=== PATIENT | female | born 1995 | race Caucasian/White ===

== ENCOUNTER 2017-09-30 16:08 | Emergency (ER) | payer SELFPAY ==
[~2017-09-30] VITALS: Ht 165.1 cm; Wt 70.8 kg
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
--- NOTE | 2017-09-30 16:10 | NUR ---
IV ACCESS STARTED. BLOOD DRAWN FOR LABS. MEDICATED ORDERED.
[2017-09-30] MEDS ORDERED: IV NS 0.9% 1,000 ML BAG IV ONE (16:30)
[2017-09-30] MEDS ORDERED: ONDANSETRON HCL/PF 4 MG/2 ML VIAL IVP ONE (16:30)
[2017-09-30] MEDS ORDERED: MORPHINE SULFATE INJ 2 MG/ML DISP.SYRIN IV ONE ×2 (16:30→18:30)
[2017-09-30] MEDS ORDERED: ONDANSETRON HCL/PF 4 MG/2 ML VIAL ONE (16:31)
[2017-09-30] MEDS ORDERED: MORPHINE SULFATE INJ 4 MG/ML DISP.SYRIN ONE ×2 (16:31→18:16)
[2017-09-30 16:33] LABS: BASOPHILS # (AUTO) 0.1 /CMM (0.0-0.2); BASOPHILS % (AUTO) 1.2 % (0.0-2.0); EOSINOPHILS % (AUTO) 0.7 % (0.0-6.0); HEMATOCRIT 40 % (33-45); HEMOGLOBIN 13.5 g/dL (11.5-14.8); LYMPHOCYTES # (AUTO) 1.8 /CMM (0.8-4.8); LYMPHOCYTES % (AUTO) 22.9 % (20.0-44.0); MEAN CORPUSCULAR HEMOGLOBIN 31 PG (26.0-33.0); MEAN CORPUSCULAR HGB CONC 34 g/dl (31.0-36.0); MEAN CORPUSCULAR VOLUME 91 fL (82-100); MONOCYTES # (AUTO) 0.6 /CMM (0.1-1.30); MONOCYTES % (AUTO) 8.3 % (2.0-12.0); NEUTROPHILS # (AUTO) 5.2 /CMM (1.8-8.9); NEUTROPHILS % (AUTO) 66.9 % (43.0-81.0); PLATELET COUNT (AUTO) 264 /CMM (150-450); RDW COEFFICIENT OF VARIATION 12.9 (11.5-15.0); RED BLOOD CELL COUNT(AUTO) 4.38 MIL/uL (4.0-5.2); WHITE BLOOD COUNT (AUTO) 7.8 K/uL (4.3-11.0)
--- NOTE | 2017-09-30 16:48 | NUR ---
PT TAKEN TO CT.
[2017-09-30 16:50] LABS: ALBUMIN 3.7 g/dL (3.4-5.0); BILIRUBIN,DIRECT 0.1 mg/dL (0.0-0.2); BILIRUBIN,TOTAL 0.4 mg/dL (0.2-1.0); CALCIUM, SERUM 8.8 mg/dL (8.5-10.1); CREATININE 0.7 mg/dL (0.6-1.3); POTASSIUM 4.4 mmol/L (3.5-5.1); TOTAL PROTEIN, SERUM 7.4 g/dL (6.4-8.2)
[2017-09-30] MEDS ORDERED: IOHEXOL-300 100 ML VIAL IV ONE (16:51)
[2017-09-30 16:54] LABS: INR 0.95 (0.85-1.15)
[2017-09-30 18:09] LABS: APPEARANCE,URINE Clear (CLEAR); BILIRUBIN,URINE Negative (NEGATIVE); BLOOD, URINE Negative Ery/uL (NEGATIVE); COLOR,URINE Yellow (YELLOW); KETONES,URINE Negative (NEGATIVE); LEUKOCYTE ESTERASE ,URINE Negative (NEGATIVE); NITRITE, URINE Negative (NEGATIVE); PH,URINE 5.5 (5.0-8.0); PROTEIN,URINE Negative (NEGATIVE); UGLUCOSE Negative (NEGATIVE); UROBILINOGEN,URINE 0.2 EU/dL (0.2)
--- NOTE | 2017-09-30 19:12 | NUR ---
IV removed. Catheter intact and site benign. Pressure and 4x4 applied to site. No bleeding noted.
--- NOTE | 2017-09-30 19:12 | NUR ---
Patient discharged to home in stable condition. Written and verbal after care instructions given. Patient verbalizes understanding of instruction.
[2017-09-30 19:17] VITALS: BP 128/68
== END 2017-09-30 19:19 | disposition home or self-care (01) ==
LOC: ER 16:13
DX: S19.89XA Other specified injuries of other specified part of neck, initial encounter (principal); S39.82XA Other specified injuries of lower back, initial encounter; S29.092A Other injury of muscle and tendon of back wall of thorax, initial encounter; W13.0XXA Fall from, out of or through balcony, initial encounter; Y93.89 Activity, other specified; Y92.098 Other place in other non-institutional residence as the place of occurrence of the external cause; Y99.8 Other external cause status
CPT/HCPCS: 36415; 70450; 71260; 72125; 74177; 80048; 80076; 81001; 84703 ×2; 85025; 85730; 96374; 96375; 96376; 99285; A4606; J2270 ×2; J2405; J7030; Q9967; Z7610; 81000-TC

== ENCOUNTER 2017-10-26 20:58 | Emergency (ER) | payer SELFPAY ==
[~2017-10-26] VITALS: Ht 154.9 cm; Wt 56.7 kg
[2017-10-26 21:18] VITALS: BP 124/76
--- NOTE | 2017-10-26 21:42 | NUR ---
CALLED PT NAME X 3 TO BRING TO ER BED. PER ADMITTING PT LEFT
--- NOTE | 2017-10-26 21:42 | NUR ---
CALLED PATIENTS NAME OUT TWICE IN WAITING ROOM. NO RESPONSE. RENEA IN THE FIELD MERCHANDISER CONFIRMED THAT THE PT DID LEAVE.
== END 2017-10-26 21:42 | disposition left against medical advice (07) ==
LOC: ER 20:59
DX: Z53.21 Procedure and treatment not carried out due to patient leaving prior to being seen by health care provider (principal)
CPT/HCPCS: A4606; Z7610

== ENCOUNTER 2017-10-27 09:05 | Emergency (ER) | payer MEDICAID ==
[~2017-10-27] VITALS: Ht 165.1 cm; Wt 61.0 kg
[2017-10-27] MEDS ORDERED: LIDOCAINE 1%-EPI 1:100,000 20 ML VIAL ONE (09:12)
--- NOTE | 2017-10-27 09:14 | NUR ---
PATIENT TO ED DT LACERATION- BACK OF HEAD SP FALL LAST NIGHT. REPORTED LOC. PATIENT IS AWAKE AND ALERT AT THIS TIME,. VSS
[2017-10-27 09:32] VITALS: BP 112/80
--- NOTE | 2017-10-27 09:32 | NUR ---
Patient discharged to home in stable condition. Written and verbal after care instructions given. Patient verbalizes understanding of instruction.
== END 2017-10-27 09:38 | disposition home or self-care (01) ==
LOC: ER 09:08
DX: S01.01XA Laceration without foreign body of scalp, initial encounter (principal); W18.09XA Striking against other object with subsequent fall, initial encounter; Y93.89 Activity, other specified; Y92.89 Other specified places as the place of occurrence of the external cause; Y99.8 Other external cause status
CPT/HCPCS: 12001; 99283; A4606; A6402; J3490; Z7610

== ENCOUNTER 2018-07-27 03:19 | Inpatient (IN) | payer MEDICAID ==
[~2018-07-27] VITALS: Ht 167.6 cm; Wt 64.9 kg
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
--- NOTE | 2018-07-27 03:44 | NUR ---
DR. GALLARDO ON PHONE WITH POISON CONTROL
[2018-07-27 04:28] LABS: BASOPHILS % (AUTO) 0.6 % (0.0-2.0); EOSINOPHILS % (AUTO) 0.5 % (0.0-6.0); HEMATOCRIT 42 % (33-45); LYMPHOCYTES # (AUTO) 1.3 /CMM (0.8-4.8); LYMPHOCYTES % (AUTO) 17.7 % (20.0-44.0); MEAN CORPUSCULAR HGB CONC 34 g/dl (31.0-36.0); MEAN CORPUSCULAR VOLUME 95 fL (82-100); MONOCYTES # (AUTO) 0.5 /CMM (0.1-1.30); MONOCYTES % (AUTO) 6.8 % (2.0-12.0); NEUTROPHILS # (AUTO) 5.6 /CMM (1.8-8.9); NEUTROPHILS % (AUTO) 74.4 % (43.0-81.0); PLATELET COUNT (AUTO) 268 /CMM (150-450); RED BLOOD CELL COUNT(AUTO) 4.38 MIL/uL (4.0-5.2); WHITE BLOOD COUNT (AUTO) 7.5 K/uL (4.3-11.0)
[2018-07-27 04:40] LABS: APPEARANCE,URINE Clear (CLEAR); BILIRUBIN,URINE Negative (NEGATIVE); BLOOD, URINE Trace-intact Ery/uL (NEGATIVE); COLOR,URINE Other (YELLOW); KETONES,URINE Negative (NEGATIVE); LEUKOCYTE ESTERASE ,URINE Negative (NEGATIVE); NITRITE, URINE Negative (NEGATIVE); PROTEIN,URINE Negative (NEGATIVE); UGLUCOSE Negative (NEGATIVE); UROBILINOGEN,URINE 0.2 EU/dL (0.2)
[2018-07-27 04:40] LABS: CALCIUM, SERUM 9.1 mg/dL (8.5-10.1); CREATININE 0.8 mg/dL (0.6-1.3); POTASSIUM 4.1 mmol/L (3.5-5.1)
--- NOTE | 2018-07-27 04:52 | NUR ---
PT LEFT FOR RADIOLOGY VIA [facility].
[2018-07-27 04:53] LABS: ALBUMIN 4.2 g/dL (3.4-5.0); BILIRUBIN,DIRECT 0.1 mg/dL (0.0-0.2); BILIRUBIN,TOTAL 0.3 mg/dL (0.2-1.0); SALICYLATE 1.2 mg/dL (2.8-20.0)
--- NOTE | 2018-07-27 05:00 | NUR ---
PT RETURNED FROM CT.
--- NOTE | 2018-07-27 05:11 | NUR ---
PT APPEARS TO BE RESTING COMFORTABLY. PT IS TALKING AND JOKING WITH [employer].
--- NOTE | 2018-07-27 05:39 | NUR ---
PT AMBULATED TO THE BATHROOM IN HANDCUFFS WITH [employer]. [employer] IS WAITING OUTSIDE THE BATHROOM FOR THE PT.
--- NOTE | 2018-07-27 05:55 | NUR ---
PT RETURNED TO ER BED #7.
[2018-07-27 06:07] LABS: BACTERIA,URINE None seen /HPF (None Seen); RBC,URINE 0-2 /HPF (0-2); SQUAMOUS EPITHELIAL CELL,UR Few /HPF (None Seen); WBC,URINE 0-2 /HPF (0-3)
--- NOTE | 2018-07-27 06:15 | NUR ---
PT REC'D 2 WARM BLANKETS
--- NOTE | 2018-07-27 06:15 | NUR ---
PT APPEARS TO BE RESTING COMFORTABLY. NO S/S OF PAIN OR DISTRESS NOTED.
--- NOTE | 2018-07-27 07:30 | NUR ---
PO challenge, patient complaints of burning sensation during swallowing.
--- NOTE | 2018-07-27 08:40 | NUR ---
EDWIGED officer left and states that the patient is no longer in custody.
--- NOTE | 2018-07-27 08:59 | NUR ---
REPORT GIVEN TO SARITA KERR FOR DOAN MS 200.
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
[2018-07-27] MEDS ORDERED: Z GUARD REMEDY 2 OZ OINT TP PRN (10:30)
[2018-07-27] MEDS ORDERED: MAG HYDROX/AL HYDROX/SIMETH 30 ML UDC PO PRN (10:30)
[2018-07-27] MEDS ORDERED: PANTOPRAZOLE 40 MG VIAL IV SCH (10:30)
[2018-07-27] MEDS ORDERED: ONDANSETRON HCL/PF 4 MG/2 ML VIAL IVP PRN (10:30)
[2018-07-27] MEDS ORDERED: MAGNESIUM HYDROXIDE 30 ML UDC PO PRN (10:30)
[2018-07-27] MEDS: IV NS 0.9% 1,000 ML IV PRN (10:42)
[2018-07-27] MEDS: MORPHINE SULFATE INJ 2 MG/ML DISP.SYRIN IV PRN ×3 (10:43→19:35)
[2018-07-27 11:00] VITALS: BP 116/77
--- NOTE | 2018-07-27 11:00 | NUR ---
MS VENTILATING ENGINEER NOTE PT TRANSFERRED FROM RM 200 TO RM 308-1. RECEIVED REPORT FROM SARITA KERR. PT IS A/OX4, AFEBRILE. RESPIRATIONS ARE EVEN AND UNLABORED, NOT IN ANY ACUTE DISTRESS NOTED. PUPILS ARE REACTIVE TO LIGHT, BILATERAL HAND HUMAN RESOURCES EXECUTIVE ARE STRONG AND EQUAL. PT DENIES ANY PAIN AT THIS TIME SHE WAS MEDICATED BY SARITA KERR. NO C/O SOB, N/V. IV SITE TO RIGHT HAND G20 INTACT, NO INFILTRATION NOTED. DRESSING KEPT CLEAN AND DRY. ABDOMEN IS SOFT AND NONDISTENDED, BOWEL SOUNDS ARE PRESENT IN ALL 4 QUADRANTS UPON AUSCULTATION. DENIES ANY BLADDER DISCOMFORT. LEFT WRIST NOTED WITH KERLIX. INFORMED PT THAT IT HAS BE SEEN. PT STATED "TAKE IT OUT LATER, I JUST WANT TO REST." NO OTHER SKIN ISSUES NOTED. ISABEL LEMON, TARUN MADE AWARE OF ADMISSION. PT IS ON SUICIDAL PRECAUTIONS AT THIS TIME. PT DOES NOT HOWEVER VERBALIZE ANY THOUGHTS OF HARMING SELF. INSTRUCTED PT TO USE CALL LIGHT WHEN ASSISTANCE IS NEEDED, CALL LIGHT IS LEFT WITHIN REACH. WILL CONTINUE TO MONITOR THE PT CLOSELY.
[2018-07-27] MEDS: NEXIUM 40 MG VIAL IV SCH ×2 (11:50→21:26)
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
--- NOTE | 2018-07-27 16:31 | NUR ---
MS RN NOTES-- PT AGREED TO HAVE PICTURE TAKEN TO LEFT WRIST. PHOTO PLACED IN CHART.
[2018-07-27] MEDS ORDERED: LORAZEPAM INJ 2 MG/ML VIAL IV PRN (17:30)
--- NOTE | 2018-07-27 18:49 | NUR ---
MS RN CLOSING NOTES NEEDS MET AND RENDERED. PT IS A/O X4, AFEBRILE. RESPIRATIONS ARE EVEN AND UNLABORED, NOT IN ANY ACUTE DISTRESS NOTED. PT DENIES ANY PAIN AT THIS TIME, NO C/O SOB, N/V. IV SITE TO RIGHT HAND INTACT, NO INFILTRATION NOTED. DRESSING KEPT CLEAN AND DRY. SITTER AT BEDSIDE D/T SUICIDAL ATTEMPT. WILL ENDORSE TO NEXT SHIFT FOR CONTINUITY OF CARE.
--- NOTE | 2018-07-27 19:20 | NUR ---
MS RN NOTES RECEIVED PT IN BED AWAKE AND ABLE TO MAKE NEEDS KNOWN WITH SITTER AT BEDSIDE. PT A/O X4. RESPIRATIONS EVEN AND UNLABORED WITH NO S/S OF ACUTE DISTRESS OR SOB NOTED. IV SITE TO RIGHT HAND #20G PATENT AND INTACT, NO INFILTRATION NOTED RUNNING NS@75ML/HR. SAFETY MEASURES IN PLACE WITH BED IN LOWEST LOCKED POSITION WITH SIDE RAILS UP X2. CALL LIGHT WITHIN REACH. WILL CONTINUE TO MONITOR.
[2018-07-27 20:00] VITALS: BP 108/63
[2018-07-28] VITALS (8 sets, daily range): BP systolic 94–111; BP diastolic 57–74
[2018-07-28] MEDS: IV NS 0.9% 1,000 ML IV PRN ×2 (02:09→18:12)
[2018-07-28 07:16] LABS: BASOPHILS % (AUTO) 0.6 % (0.0-2.0); EOSINOPHILS % (AUTO) 1.7 % (0.0-6.0); HEMATOCRIT 39 % (33-45); HEMOGLOBIN 12.8 g/dL (11.5-14.8); LYMPHOCYTES % (AUTO) 39.8 % (20.0-44.0); MEAN CORPUSCULAR HGB CONC 33 g/dl (31.0-36.0); MEAN CORPUSCULAR VOLUME 95 fL (82-100); MONOCYTES # (AUTO) 0.4 /CMM (0.1-1.30); MONOCYTES % (AUTO) 7.9 % (2.0-12.0); NEUTROPHILS # (AUTO) 2.6 /CMM (1.8-8.9); PLATELET COUNT (AUTO) 240 /CMM (150-450); RED BLOOD CELL COUNT(AUTO) 4.04 MIL/uL (4.0-5.2); WHITE BLOOD COUNT (AUTO) 5.2 K/uL (4.3-11.0)
[2018-07-28 07:25] LABS: CALCIUM, SERUM 8.4 mg/dL (8.5-10.1); CREATININE 0.7 mg/dL (0.6-1.3); MAGNESIUM 1.8 mg/dL (1.8-2.4); PHOSPHORUS 3.5 mg/dL (2.5-4.9); POTASSIUM 3.7 mmol/L (3.5-5.1)
[2018-07-28 07:34] LABS: THYROID STIMULATING HORMONE 3.434 uIU/mL (0.358-3.74)
--- NOTE | 2018-07-28 07:55 | NUR ---
MS RN NOTES PT IN BED ASLEEP BUT EASILY AWOKEN VERBALLY OR BY TOUCH. PT A/O X4 AND ABLE TO MAKE NEEDS KNOWN WITH SITTER AT BEDSIDE. RESPIRATIONS EVEN AND UNLABORED WITH NO S/S OF ACUTE DISTRESS OR SOB NOTED THROUGHOUT SHIFT. IV SITE TO RIGHT HAND #20G PATENT AND INTACT, NO INFILTRATION NOTED RUNNING NS@75ML/HR. SAFETY MEASURES IN PLACE WITH BED IN LOWEST LOCKED POSITION WITH SIDE RAILS UP X2. CALL LIGHT WITHIN REACH. WILL ENDORSE TO ONCOMING NURSE FOR DONA.
--- NOTE | 2018-07-28 08:00 | NUR ---
RN MS NOTES PT IN BED, ASLEEP, EASY TO AROUSE, ALERT AND ORIENTED, NO COMPLAINT OF PAIN, CALM AT THIS TIME, NOT IN DISTRESS, SITTER AT BEDSIDE, SAFETY PRECAUTIONS OBSERVED, KEPT COMFORTABLE, CALL LIGHT WITHIN REACH.
[2018-07-28] MEDS ORDERED: FENTANYL PF 100MCG/2ML AMPUL ONE (08:03)
[2018-07-28] MEDS ORDERED: MIDAZOLAM HCL 2 MG/2ML VIAL ONE (08:04)
[2018-07-28] MEDS ORDERED: ANESTHESIA TRAY IN PYXIS 1 EA TRAY MC ONE (08:21)
[2018-07-28] MEDS: NEXIUM 40 MG VIAL IV SCH (08:30)
--- NOTE | 2018-07-28 09:30 | NUR ---
RN MS NOTES PT PICKED UP BY O.R. STAFF VIA BED IN STABLE CONDITION.
[2018-07-28] MEDS ORDERED: SUCRALFATE 1 G/10 ML UDC PO SCH (12:00)
[2018-07-28] MEDS: SUCRALFATE 1 G/10 ML UDC PO SCH ×3 (13:23→21:28)
[2018-07-28] MEDS: MORPHINE SULFATE INJ 2 MG/ML DISP.SYRIN IV PRN ×2 (15:50→19:58)
[2018-07-28] MEDS ORDERED: ONDANSETRON 4 MG TAB.RAPDIS ONE (16:27)
--- NOTE | 2018-07-28 18:17 | NUR ---
RN MS NOTES PT IN BED, AWAKE, ALERT AND ORIENTED, NOT IN DISTRESS, PAIN MEDS GIVEN FOR PAIN MANAGEMENT, NO SUICIDAL IDEATION AT THIS TIME, SITTER AT BEDSIDE AT ALL TIMES, SAFETY PRECAUTIONS OBSERVED, IV FLUIDS INFUSING WELL, TOLERATING CURRENT DIET WELL, NO COMPLAINT OF NAUSEA OR VOMITING, SEEN AND EXAMINED BY DR. SCHREIBER, PM MEDS GIVEN, ALL NEEDS ATTENDED.
--- NOTE | 2018-07-28 19:00 | NUR ---
RN OPENING NOTES Received patient sitting up in bed, alert, oriented x 4. 1:1 sitter at bedside. Breathing even and unlabored. Not in any distress. Peripheral IV infusing at 75mL/hr. No complaints at this time. Patient stable as endorsed by the AM RN. Safety measures in place; call light within reach. Bed in low, locked position. Will continue to monitor accordingly
--- NOTE | 2018-07-28 19:59 | NUR ---
RN NOTES Patient c/o generalized pain, 10/13. Morphine 1mg given as ordered. Excess wasted with another RN. Will continue to monitor
--- NOTE | 2018-07-28 20:51 | NUR ---
RN NOTES Patient verbalized that she is depressed, but no suicidal ideation or plans to hurt herself. She is concerned regarding her restraining order as she is worried about where to go after she comes out of the hospital. Patient stated she does not know anyone here. gang worker consult ordered.
[2018-07-28] MEDS ORDERED: MIRTAZAPINE SOLUTAB 15 MG/UDTABLET TAB.RAPDIS ONE (21:24)
[2018-07-28] MEDS: MIRTAZAPINE SOLUTAB 15 MG/UDTABLET TAB.RAPDIS PO SCH (21:27)
[2018-07-28] MEDS: PANTOPRAZOLE 40 MG TABLET.DR PO SCH (21:27)
[2018-07-29] MEDS: IV NS 0.9% 1,000 ML IV PRN (05:00)
--- NOTE | 2018-07-29 06:58 | NUR ---
MS RN CLOSING NOTES Patient resting in bed, 1:1 sitter at bedside. Breathing and unlabored. Not in any distress. Peripheral IV infusing at 75mL/hr. No acute changes overnight. All needs attended to. Will endorse DONA to oncoming RN
[2018-07-29 07:05] LABS: BASOPHILS % (AUTO) 0.5 % (0.0-2.0); EOSINOPHILS % (AUTO) 1.8 % (0.0-6.0); HEMATOCRIT 36 % (33-45); LYMPHOCYTES # (AUTO) 2.2 /CMM (0.8-4.8); LYMPHOCYTES % (AUTO) 34.9 % (20.0-44.0); MEAN CORPUSCULAR HGB CONC 33 g/dl (31.0-36.0); MEAN CORPUSCULAR VOLUME 95 fL (82-100); MONOCYTES # (AUTO) 0.4 /CMM (0.1-1.30); MONOCYTES % (AUTO) 5.7 % (2.0-12.0); NEUTROPHILS # (AUTO) 3.7 /CMM (1.8-8.9); NEUTROPHILS % (AUTO) 57.1 % (43.0-81.0); PLATELET COUNT (AUTO) 220 /CMM (150-450); RED BLOOD CELL COUNT(AUTO) 3.77 MIL/uL (4.0-5.2); WHITE BLOOD COUNT (AUTO) 6.4 K/uL (4.3-11.0)
--- NOTE | 2018-07-29 07:10 | NUR ---
RN OPENING NOTES RECEIVED PATIENT IN BED ASLEEP, EASILY AROUSES. NOT IN ANY FORM OF DISTRESS, NO SOB. DENIED PAIN OR DISCOMFORT AT THIS TIME. SITTER AT BEDSIDE FOR SAFETY. DENIED SI/HI. KEPT SAFE AND COMFORTABLE. BED IN LOW LOCKED POSITION, SIDERAILS UPX2, CALL LIGHT IN REACH. WILL MONITOR ACCORDINGLY
[2018-07-29 07:17] LABS: CALCIUM, SERUM 7.8 mg/dL (8.5-10.1); CREATININE 0.6 mg/dL (0.6-1.3); POTASSIUM 3.7 mmol/L (3.5-5.1)
[2018-07-29 07:59] VITALS: BP 90/54
[2018-07-29 08:00] VITALS: BP 90/54
[2018-07-29] MEDS: PANTOPRAZOLE 40 MG TABLET.DR PO SCH ×2 (08:13→21:20)
[2018-07-29] MEDS: SUCRALFATE 1 G/10 ML UDC PO SCH ×4 (08:14→21:20)
[2018-07-29] MEDS ORDERED: IV NS 0.9% 500 ML IV ONE (09:00)
--- NOTE | 2018-07-29 09:04 | NUR ---
audra coulter,information and data architect analyst at bedside making rounds. information and data architect analyst notified of patient's decrease bp, bp=87/54. per audra, give 500ml ns bolus, noted and will carry out.
[2018-07-29] MEDS: MORPHINE SULFATE INJ 2 MG/ML DISP.SYRIN IV PRN ×3 (10:23→19:42)
[2018-07-29 14:25] VITALS: BP 122/87
[2018-07-29 16:00] VITALS: BP 107/68
[2018-07-29] MEDS: ARIPIPRAZOLE 5 MG TABLET PO SCH (17:27)
--- NOTE | 2018-07-29 19:30 | NUR ---
RN MS OPENING NOTES RECEIVED PATIENT IN BED AWAKE, ALERT AND ORIENTED X4, VERBALLY RESPONSIVE, ABLE TO MAKE NEEDS KNOWN. BREATHING EVEN AND UNLABORED. NO SOB NOTED. TOLERATING ROOM AIR. IV ON RIGHT HAND G#20 INTACT AND PATENT WITH IVF INFUSING. WITH COMPLAINTS OF PAIN GENERALIZED BODY PAIN. WILL GIVE PRN PAIN MEDICATION ORDERED. SKIN DRY AND WARM TO TOUCH. AFEBRILE. ALL OTHER NEEDS MET. PATIENT AMBULATORY WITH STEADY GAIT. SAFETY MEASURES IN PLACE. CALL LIGHT WITHIN REACH. WILL CONTINUE TO MONITOR.
--- NOTE | 2018-07-29 19:37 | NUR ---
RN CLOSING NOTES PATIENT IN STABLE CONDITION. ALL NEED ATTENDED AND PROVIDED. ALL DUE MEDS GIVEN ORDERED. KEPT PATIENT SAFE AND COMFORTABLE. BED IN LOW.LOCKED POSITION, SIDERAILS UP, CALL LIGHT IN REACH. ENDORSED TO NIGHT RN FOR DONA. Addendum: 07/29/18 at 1937 by TILA GEORGE SITTER AT BEDSIDE
[2018-07-29 20:00] VITALS: BP 114/75
--- NOTE | 2018-07-29 20:00 | NUR ---
RN MS NOTES PATIENT REFUSING TO GO BACK ON IV FLUIDS. PER PATIENT, SHE WANT'S TO GIVE HER ARM "REST." EXPLAINED THE RISKS AND BENEFITS OF IVF AND HER BP TO HAVE A TENDENCY TO DECREASE. PER PERSISTENT AND DOES NOT WANT IVF. INSTRUCTED PATIENT TO INCREASE HER WATER INTAKE - PATIENT VERBALIZED UNDERSTANDING. WILL CONTINUE TO MONITOR.
--- NOTE | 2018-07-29 20:41 | NUR ---
RN MS NOTES PATIENT REQUESTED FOR HER IV ACCESS TO BE TAKEN OUT DUE TO PAIN. INFORMED PATIENT THAT I WOULD NEED TO INSERT A NEW ONE BUT PATIENT REFUSED. PER PATIENT "IM TIRED OF THAT SHIT." AGAIN, EXPLAINED TO PATIENT THAT I NEED TO HAVE NEW IV ACCESS, SPECIFICALLY IN CASE OF EMERGENCY ALSO, PATIENT STILL REFUSED. WILL INFORM MD AND CONTINUE TO MONITOR.
--- NOTE | 2018-07-29 20:51 | NUR ---
RN MS NOTES INFORMED DR. SIFUENTES REGARDING PATIENT'S IVF AND IV ACCESS REFUSAL. PER DR. SIFUENTES, "OK". WILL CONTINUE TO MONITOR.
[2018-07-29] MEDS: MIRTAZAPINE SOLUTAB 15 MG/UDTABLET TAB.RAPDIS PO SCH (21:20)
--- NOTE | 2018-07-29 21:30 | NUR ---
RN MS NOTES PATIENT HAD AN EPISODE OF WANTING TO LEAVE AMA. EXPLAINED TO PATIENT THAT SHE IS NOT MEDICALLY CLEARED FOR D/C YET AND WE WILL HAVE TO TALK TO MD IN THE MORNING, HOWEVER SHE IS ALREADY FOR D/C PLANNING. ALSO EXPLAINED TO PATIENT THAT I WOULD RATHER D/C HER PROPERLY WITH ALL NECESSARY DOCUMENTS OR PRESCRIPTIONS, IF ANY. PATIENT VERBALIZED UNDERSTANDING AND AGREED TO STAY. ALSO APOLOGIZED FOR HER BEHAVIOR.
--- NOTE | 2018-07-30 06:53 | NUR ---
RN MS CLOSING NOTES PATIENT RESTING IN BED. NO ACUTE CHANGES OTHER THAN PATIENT REALLY WANTS TO BE DISCHARGED ALREADY. BREATHING EVEN AND UNLABORED. NO SOB NOTED. TOLERATING ROOM AIR. NO IV DUE TO PATIENT'S REFUSAL. NO COMPLAINTS OF PAIN OR DISCOMFORT. ALL OTHER NEEDS MET. SITTER AT BEDSIDE. SAFETY MEASURES IN PLACE. CALL LIGHT WITHIN REACH. WILL ENDORSE TO ONCOMING NURSE FOR DONA.
--- NOTE | 2018-07-30 07:12 | NUR ---
RN OPENING NOTES RECEIVED PATIENT IN BED ASLEEP, EASILY AROUSES. NOT IN ANY FORM OF DISTRESS, NO SOB. DENIED PAIN OR DISCOMFORT AT THIS TIME. SITTER AT BEDSIDE FOR SAFETY. NO IV ACCESS, MD AWARE. DENIED SI/HI. KEPT SAFE AND COMFORTABLE. BED IN LOW LOCKED POSITION, SIDERAILS UPX2, CALL LIGHT IN REACH. WILL MONITOR ACCORDINGLY.
[2018-07-30 08:00] VITALS: BP 119/77
[2018-07-30] MEDS: SUCRALFATE 1 G/10 ML UDC PO SCH ×2 (08:23→11:37)
[2018-07-30] MEDS: PANTOPRAZOLE 40 MG TABLET.DR PO SCH (08:24)
[2018-07-30] MEDS: ARIPIPRAZOLE 5 MG TABLET PO SCH (08:24)
--- NOTE | 2018-07-30 09:20 | NUR ---
ISABEL LEMON, AT BEDSIDE TALKING TO PATIENT. PATIENT RIGHT HAND SWELLING NOTED, WARM COMPRESS APPLIED ORDERED.
--- NOTE | 2018-07-30 09:30 | NUR ---
PATIENT MEDICALLY CLEARED PER ISABEL LEMON,SALES SUPPORT ADMINISTRATOR
[2018-07-30] MEDS ORDERED: HYDROCODONE/APAP 5/325MG 1 EACH TABLET PO PRN (10:30)
[2018-07-30] MEDS ORDERED: PANT40TA2 PO (14:03)
[2018-07-30] MEDS ORDERED: SUCR1ORA6 PO (14:03)
[2018-07-30] MEDS ORDERED: ARIP5TAB10 PO (14:03)
[2018-07-30] MEDS ORDERED: MIRT15TA3 PO (14:03)
--- NOTE | 2018-07-30 14:21 | NUR ---
CRISIS TEAM, MELCHOR SAPP AT BEDSIDE TALKING TO PATIENT
--- NOTE | 2018-07-30 14:45 | NUR ---
CLEARED BY CRISIS TEAM, MELCHOR SAPP.
--- NOTE | 2018-07-30 15:42 | NUR ---
PATIENT SAID SHE'S GOING TO STAY AT HER FAMILY FRIEND'S HOUSE AT [facility]. ADDRESS IS [address] [place] [address].
--- NOTE | 2018-07-30 15:48 | NUR ---
DISCHARGED PATIENT IN STABLE CONDITION ACCOMPANIED BY PRIMARY NURSE TO THE LOBBY. DISCHARGED INSTRUCTIONS GIVEN, VERBALIZED UNDERSTANDING.PAPERWORK GIVEN, ALL BELONGINGS RETURNED, ALL FORMS SIGNED. REMOVED NAME BAND. NO IV ACCESS. REFUSED PHOTO.
== END 2018-07-30 15:45 | disposition home or self-care (01) | DRG 816 ==
LOC: ER 03:22 → MEDSG2 09:04 → MED 11:35
PROVIDERS: ADMIT Nurse Practitioner Acute Care; ATTEND Nurse Practitioner Acute Care
PROC: 0DB28ZX Excision of Middle Esophagus, Via Natural or Artificial Opening Endoscopic, Diagnostic (ICD-10-PCS; principal; 2018-07-28)
PROC: 0DB68ZX Excision of Stomach, Via Natural or Artificial Opening Endoscopic, Diagnostic (ICD-10-PCS; principal; 2018-07-28)
PROC: 0DB98ZX Excision of Duodenum, Via Natural or Artificial Opening Endoscopic, Diagnostic (ICD-10-PCS; principal; 2018-07-28)
DX: T54.3X2A Toxic effect of corrosive alkalis and alkali-like substances, intentional self-harm, initial encounter (principal); K29.71 Gastritis, unspecified, with bleeding; K76.89 Other specified diseases of liver; F31.9 Bipolar disorder, unspecified; F10.129 Alcohol abuse with intoxication, unspecified; Y90.6 Blood alcohol level of 120-199 mg/100 ml; K20.9 Esophagitis, unspecified; F17.210 Nicotine dependence, cigarettes, uncomplicated; F43.10 Post-traumatic stress disorder, unspecified; S61.511A Laceration without foreign body of right wrist, initial encounter; X78.9XXA Intentional self-harm by unspecified sharp object, initial encounter; F14.10 Cocaine abuse, uncomplicated; Y92.009 Unspecified place in unspecified non-institutional (private) residence as the place of occurrence of the external cause; Z91.5 Personal history of self-harm; Z59.0 Homelessness; K29.81 Duodenitis with bleeding
CPT/HCPCS: 36415; 70450-TC; 70490-TC; 71250-TC; 80048-TC; 80061-TC; 80076-TC; 80305; 81000-TC; 83735-TC; 84100-TC; 84443-TC; 84703-TC; 85025-TC; 85730-TC; 87081-TC; 88305-TC; 88313-TC; 88342; A6402; A6403; G0378; G0480; J2250; J2270; J2704; J3010; J7030; J7040; Q0162